=== PATIENT | female | born 1945 | race Caucasian/White ===

== ENCOUNTER 2020-12-06 10:15 | Outpatient (CLI) | payer OTHER | END 2020-12-06 10:31 | disposition home or self-care (01) | LOC: EDBD 10:15 → MAMO-SONO 10:15 | DX: E04.2 Nontoxic multinodular goiter (principal); Z12.31 Encounter for screening mammogram for malignant neoplasm of breast; N64.4 Mastodynia; Z87.898 Personal history of other specified conditions ==